=== PATIENT | female | born 1990 | race Two or more races ===

== ENCOUNTER 2020-06-23 10:35 | Emergency (ER) | payer OTHER ==
[~2020-06-23] VITALS: Ht 167.6 cm; Wt 74.8 kg
[~2020-06-23 10:35] MED LIST: AMOXICILLIN500 MG PO; CLARITIN10 MG PO; NASONEX17 GM NS; TUSSI-PRES LIQ120 ML PO; ZITHROMAX TRI-500 MG PO
[2020-06-23] MEDS ORDERED: AMOX1TAB5 PO (14:21)
[2020-06-23] MEDS ORDERED: KETO10TA2 PO (14:21)
== END 2020-06-23 16:32 | disposition home or self-care (01) ==
LOC: ER 10:35
DX: B34.9 Viral infection, unspecified (principal); Z20.828 Contact with and (suspected) exposure to other viral communicable diseases

== ENCOUNTER 2020-06-28 10:52 | Emergency (ER) | payer OTHER ==
[~2020-06-28] VITALS: Ht 167.6 cm; Wt 74.8 kg
[~2020-06-28 10:52] MED LIST changes: +AMOX1TAB5 PO; +KETO10TA2 PO
== END 2020-06-28 13:33 | disposition home or self-care (01) ==
LOC: ER 10:52
DX: B34.9 Viral infection, unspecified (principal); Z03.818 Encounter for observation for suspected exposure to other biological agents ruled out; R05 Cough

== ENCOUNTER 2020-11-23 01:44 | Emergency (ER) | payer OTHER ==
[~2020-11-23] VITALS: Ht 165.1 cm; Wt 72.6 kg
== END 2020-11-23 04:39 | disposition home or self-care (01) ==
LOC: ER 01:44
DX: S00.83XA Contusion of other part of head, initial encounter (principal); S10.83XA Contusion of other specified part of neck, initial encounter; S40.012A Contusion of left shoulder, initial encounter; S40.011A Contusion of right shoulder, initial encounter; S30.0XXA Contusion of lower back and pelvis, initial encounter; S20.212A Contusion of left front wall of thorax, initial encounter; S20.224A Contusion of middle back wall of thorax, initial encounter; V49.69XA Unspecified car occupant injured in collision with other motor vehicles in traffic accident, initial encounter; Y93.89 Activity, other specified; Y92.488 Other paved roadways as the place of occurrence of the external cause; Y99.8 Other external cause status

== ENCOUNTER 2021-07-25 14:21 | Emergency (ER) | payer OTHER ==
[~2021-07-25] VITALS: Ht 167.6 cm; Wt 79.4 kg
[2021-07-25] MEDS ORDERED: AMOX-CLAV 875-1 EACH PO (17:52)
[2021-07-25] MEDS ORDERED: INTESTINEX680 M2 PO (17:52)
[2021-07-25] MEDS ORDERED: ZYRTEC10 MG PO (17:52)
[2021-07-25] MEDS ORDERED: NORFLEX100MG PO (17:52)
[2021-07-25] MEDS ORDERED: KETO10TA2 PO (17:52)
== END 2021-07-25 18:01 | disposition home or self-care (01) ==
LOC: ER 14:21
DX: M62.830 Muscle spasm of back (principal); M54.2 Cervicalgia; H92.02 Otalgia, left ear

== ENCOUNTER 2021-09-18 21:37 | Emergency (ER) | payer OTHER ==
[~2021-09-18] VITALS: Ht 165.1 cm; Wt 79.4 kg
[~2021-09-18 21:37] MED LIST changes: +AMOX-CLAV 875-1 EACH PO; +INTESTINEX680 M2 PO; +NORFLEX100MG PO; +ZYRTEC10 MG PO
[2021-09-19] MEDS ORDERED: PEPCID40 MG PO (02:38)
[2021-09-19] MEDS ORDERED: PROTONIX40 MG PO (02:38)
[2021-09-19] MEDS ORDERED: ZOFRAN4 MG PO (02:38)
[2021-09-19] MEDS ORDERED: INTESTINEX680 M1 PO (02:41)
[2021-09-19] MEDS ORDERED: LEVSIN/SL0.125 MG SL (02:41)
== END 2021-09-19 03:52 ==
LOC: ER 21:37
DX: K52.9 Noninfective gastroenteritis and colitis, unspecified (principal); Z03.818 Encounter for observation for suspected exposure to other biological agents ruled out; R10.9 Unspecified abdominal pain

== ENCOUNTER 2022-06-13 13:25 | Emergency (ER) | payer OTHER ==
[~2022-06-13] VITALS: Ht 165.1 cm; Wt 76.2 kg
[~2022-06-13 13:25] MED LIST changes: +INTESTINEX680 M1 PO; +LEVSIN/SL0.125 MG SL; +PEPCID40 MG PO; +PROTONIX40 MG PO; +ZOFRAN4 MG PO
[2022-06-13] MEDS ORDERED: ZITHROMAX200 MG PO (20:38)
== END 2022-06-13 20:46 | disposition home or self-care (01) ==
LOC: ER 13:25
DX: A49.3 Mycoplasma infection, unspecified site (principal); Z20.822 Contact with and (suspected) exposure to COVID-19

== ENCOUNTER 2022-10-15 20:13 | Emergency (ER) | payer OTHER ==
[~2022-10-15] VITALS: Ht 167.6 cm; Wt 77.1 kg
[~2022-10-15 20:13] MED LIST changes: +ZITHROMAX200 MG PO
[2022-10-15] MEDS ORDERED: BUDESONIDE0.5 MG/2 M IH (22:39)
[2022-10-15] MEDS ORDERED: ALBUTEROL2.5 MG/3 M IH (22:39)
[2022-10-15] MEDS ORDERED: MEDROLPACK PO (22:39)
== END 2022-10-15 22:50 | disposition home or self-care (01) ==
LOC: ER 20:13
DX: J45.901 Unspecified asthma with (acute) exacerbation (principal); Z20.822 Contact with and (suspected) exposure to COVID-19

== ENCOUNTER 2022-12-27 15:15 | Emergency (ER) | payer OTHER ==
[~2022-12-27] VITALS: Ht 170.2 cm; Wt 82.6 kg
[~2022-12-27 15:15] MED LIST changes: +ALBUTEROL2.5 MG/3 M IH; +BUDESONIDE0.5 MG/2 M IH; +MEDROLPACK PO
[2022-12-27] MEDS ORDERED: PEPCID AC20 MG PO (18:57)
[2022-12-27] MEDS ORDERED: ONDANSETRON ODT8 MG PO (18:57)
== END 2022-12-27 19:34 | disposition home or self-care (01) ==
LOC: ER 15:15
DX: K52.9 Noninfective gastroenteritis and colitis, unspecified (principal)

== ENCOUNTER 2023-03-06 12:07 | Emergency (ER) | payer OTHER ==
[~2023-03-06] VITALS: Ht 167.6 cm; Wt 72.6 kg
[~2023-03-06 12:07] MED LIST changes: +ONDANSETRON ODT8 MG PO; +PEPCID AC20 MG PO
== END 2023-03-06 15:32 | disposition home or self-care (01) ==
LOC: ER 12:07
DX: S09.8XXA Other specified injuries of head, initial encounter (principal); W22.8XXA Striking against or struck by other objects, initial encounter; Y93.89 Activity, other specified; Y92.63 Factory as the place of occurrence of the external cause; S00.10XA Contusion of unspecified eyelid and periocular area, initial encounter